=== PATIENT | female | born 1975 | race Caucasian/White ===

== ENCOUNTER → 2016-06-08 | Day surgery (SDC) | payer BC ==
[2016-06-06 14:33] VITALS: Ht 161.9 cm; Wt 90.9 kg
[~2016-06-08] VITALS: Ht 161.9 cm; Wt 90.9 kg
[~2016-06-08] MED LIST: CHLORAPHIL PO; CYAN10005 PO; ECHI80CA PO; IBUP600T44 PO; LIDOCAINE HCL 2% 2 ML VIAL (20MG/ML) ONE; MIDAZOLAM HCL 1 MG/ML 2ML VIAL ONE; MISCCAP80 PO; MULT-506 PO; PROPOFOL IV EMULSION 10 MG/ML 20 ML VIAL IV ONE; SODIUM CHLORIDE 0.9% 500ML 500 ML IV ONE; VNTHFA/IN INH; [UNRECOGNIZED DRUG - OTHER] PO
[2016-06-08 12:33] VITALS: TEMP 36.6
--- NOTE | 2016-06-08 13:08 | Endo History and Physical ---
History & Physical Date of Service: Jun 08, 2016. Chief Complaint: Reflux Referring Physician: Dr. Cardozo History of Present Illness sore throat/ear pain Past Surgical History Hx Cardiac Surgery: No Hx Internal Defibrillator: No Hx Pacemaker: No Hx Abdominal Surgery: No Hx of Implantable Prosthesis: No Hx Post-Op Nausea and Vomiting: No Hx Cancer Surgery: No Hx Thoracic Surgery: No Hx Orthopedic: No Hx Urinary Tract Surgery: No Family History None Social History Smoking Status: Never Smoker Hx Substance Use: No Hx Alcohol Use: Yes (OCCASIONAL) Allergies Coded Allergies: NO KNOWN DRUG ALLERGIES (Verified Allergy, Unknown, ., 06/06/16) Uncoded Allergies: CHEAP JEWELRY (Allergy, Unknown, ITCHING AND SWELLING, 06/06/16) Current Medications Reported Home Medications Medications Dose Route/Sig Max Daily Dose Days Date Category Ventolin Hfa (Albuterol) 200 Puffs/28268 Mcg Aers 2-4 Puffs INH Q6H PRN 06/06/16 Reported Echinacea 80 Mg Cap 1 Cap PO DAILY PRN 06/06/16 Reported Vitamin B-12 (Cyanocobalamin) 1,000 Mcg Tab 1,000 Mcg PO HS 06/06/16 Reported [Elder Rae] 1 Cap PO QAM 06/06/16 Reported [Chloraphil] 1 Cap PO QAM 06/06/16 Reported Probiotic (Probiotic Product) 1 Cap Cap 1 Tab PO QAM 06/06/16 Reported Multivitamin (Multivitamins) Tab 1 Tab PO HS 06/06/16 Reported Motrin (Ibuprofen) 600 Mg Tab 600 Mg PO Q4-6H PRN 04/23/09 Reported Vital Signs Weight (Kilograms): 90.91 Height (Feet): 5 Height (Inches): 3.75 Date Time Temp Pulse Resp B/P Pulse Ox O2 Delivery O2 Flow Rate FiO2 06/08/16 12:33 36.6 86 18 125/64 98 Room Air Physical Exam AAO x3 Nl s1s2 Lungs CTA Abd soft NT/ND + BS - CCE Assessment and Plan EGD with FENG off meds
--- NOTE | 2016-06-08 13:23 | Discharge Instructions ---
Endoscopy Patient Instructions Date / Procedure(s) Performed Jun 08, 2016. EGD Allergy Information Coded Allergies: NO KNOWN DRUG ALLERGIES (Verified Allergy, Unknown, ., 06/06/16) Uncoded Allergies: CHEAP JEWELRY (Allergy, Unknown, ITCHING AND SWELLING, 06/06/16) Discharge Date / Findings Jun 08, 2016. EGD with Perrin placment- small HH Medication Instructions Restart Stopped Medication(s): Reported Home Medications Medications Dose Route/Sig Max Daily Dose Days Date Category Ventolin Hfa (Albuterol) 200 Puffs/75998 Mcg Aers 2-4 Puffs INH Q6H PRN 06/06/16 Reported Echinacea 80 Mg Cap 1 Cap PO DAILY PRN 06/06/16 Reported Vitamin B-12 (Cyanocobalamin) 1,000 Mcg Tab 1,000 Mcg PO HS 06/06/16 Reported [Elder Rae] 1 Cap PO QAM 06/06/16 Reported [Chloraphil] 1 Cap PO QAM 06/06/16 Reported Probiotic (Probiotic Product) 1 Cap Cap 1 Tab PO QAM 06/06/16 Reported Multivitamin (Multivitamins) Tab 1 Tab PO HS 06/06/16 Reported Motrin (Ibuprofen) 600 Mg Tab 600 Mg PO Q4-6H PRN 04/23/09 Reported Reported Home Medications Medications Dose Route/Sig Max Daily Dose Days Date Category Ventolin Hfa (Albuterol) 200 Puffs/44462 Mcg Aers 2-4 Puffs INH Q6H PRN 06/06/16 Reported Echinacea 80 Mg Cap 1 Cap PO DAILY PRN 06/06/16 Reported Vitamin B-12 (Cyanocobalamin) 1,000 Mcg Tab 1,000 Mcg PO HS 06/06/16 Reported [Elder Rae] 1 Cap PO QAM 06/06/16 Reported [Chloraphil] 1 Cap PO QAM 06/06/16 Reported Probiotic (Probiotic Product) 1 Cap Cap 1 Tab PO QAM 06/06/16 Reported Multivitamin (Multivitamins) Tab 1 Tab PO HS 06/06/16 Reported Motrin (Ibuprofen) 600 Mg Tab 600 Mg PO Q4-6H PRN 04/23/09 Reported Provider Instructions Activity Restrictions - No exercising or heavy lifting for 24 hours. - Do not drink alcohol the day of the procedure. - Do not drive a car or operate machinery until the day after the procedure. - Do not make any important decisions or sign important papers in 24 hours after the procedure. Following Day: - Return to full activity which may include returning to work/school. Diet Start your diet with liquids and light foods (jello, soup, juice, toast). Then eat your usual diet if not nauseated. Treatment For Common After Affects For mild abdominal pain, bloating, or excessive gas: - Rest - Eat lightly - Lie on right side Follow-Up Information Follow-up with Dr. Cardozo as scheduled Anesthesia Information What You Should Know You have had a procedure that required some medicine to reduce anxiety and discomfort. This treatment is called moderate sedation. After receiving the treatment, you may be sleepy, but you will be able to breathe on your own. The effects of the treatment may last for several hours. Follow these instructions along with Activity/Diet recommendations noted above: * Do NOT do anything where dizziness or clumsiness would be dangerous. * Rest quietly at home today, then you can be up and about tomorrow. * Have a responsible person stay with you the rest of today. * You may have had an I.V. today. If so, you may take the dressing off later today. Recommendations Call your doctor if: * Trouble breathing * Continuous vomiting for more than 24 hours * Temperature above 101 degrees * Severe abdominal pain or bloating * Pain not relieved by pain medicine ordered * There is increased drainage or redness from any incision * A large amount of rectal bleeding greater than 2-3 tablespoons. (If you had a polyp/s removed or have hemorrhoids, a small amount of blood - from the rectum is to be expected.) * You have any unanswered questions or concerns. IN THE EVENT OF A SERIOUS EMERGENCY, GO TO THE NEAREST EMERGENCY ROOM Your discharge instructions were prepared by provider Nikolay Renner. Patient Instructions Signature Page Keisha Medrano Patient (or Guardian) Signature/Date: I have read and understand the instructions given to me by my caregivers. Caregiver/RN/Doctor Signature/Date: The above-named patient and/or guardian has received patient instructions on this date. + Original Patient Signature Page (only) stays with chart. Please make copy for patient.
--- NOTE | 2016-06-08 13:38 | GI REPORT ---
Procedure Date: 06/08/2016 12:50 PM Procedure: Upper GI endoscopy Indications: Suspected gastro-esophageal reflux disease, Chronic pharyngitis, Laryngitis, Sore throat Medicines: Propofol per Anesthesia Complications: No immediate complications. Estimated blood loss: None. Estimated Blood Loss: Estimated blood loss: none. Procedure: Pre-Anesthesia Assessment: - Prior to the procedure, a History and Physical was performed, and patient medications and allergies were reviewed. The patient's tolerance of previous anesthesia was also reviewed. The risks and benefits of the procedure and the sedation options and risks were discussed with the patient. All questions were answered, and informed consent was obtained. Prior Anticoagulants: The patient has taken no previous anticoagulant or antiplatelet agents. ASA Grade Assessment: II - A patient with mild systemic disease. After reviewing the risks and benefits, the patient was deemed in satisfactory condition to undergo the procedure. After obtaining informed consent, the endoscope was passed under direct vision. Throughout the procedure, the patient's blood pressure, pulse, and oxygen saturations were monitored continuously. The Scope was introduced through the mouth, and advanced to the second part of duodenum. The upper GI endoscopy was accomplished without difficulty. The patient tolerated the procedure well. Findings: The examined esophagus was normal. A small hiatus hernia was found. The proximal extent of the gastric folds (end of tubular esophagus) was 35 cm from the incisors. The hiatal narrowing was 36 cm from the incisors. The Z-line was 35 cm from the incisors. The middle third of the esophagus was normal. The FENG capsule with delivery system was introduced through the mouth and advanced into the esophagus, such that the FENG pH capsule was positioned 29 cm from the incisors, which was 6 cm proximal to the EG junction. Suction was applied to the well of the FENG pH capsule to suck in the adjacent mucosa of the esophagus using the external vacuum pump set at a minimum vacuum pressure of 550 mmHg for 30 seconds. The FENG pH capsule was then deployed by depressing the plunger on top of the handle to advance the locking pin into the mucosa, thereby attaching the capsule to the esophagus. The plunger was then rotated a quarter turn clockwise to release the capsule from the delivery system. The delivery system was then withdrawn. Endoscopy was utilized for probe placement and diagnostic evaluation. The entire examined stomach was normal. The examined duodenum was normal. Retained gastric contents are not identified on this exam. The cardia and gastric fundus were normal on retroflexion. Impression: - Normal esophagus. - Small hiatus hernia. - Normal middle third of esophagus. - Normal stomach. - Normal examined duodenum. - The FENG pH capsule was positioned 29 cm from the naris, which was 6 cm proximal to the EG junction. - No specimens collected. Recommendation: - Discharge patient to home (ambulatory). - Resume previous diet. - Do not use any acid suppressing medications including PPI, H 2 blockers TUMS or liquid/tablet antacids for next 48 hours - Return to GI clinic as previously scheduled. 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 Note Initiated On: 06/08/2016 12:50 PM I attest to the content of the Intraoperative Record and orders documented therein, exceptions below
[2016-06-08 13:45] VITALS: BP 112/76; PULSE 71; O2SAT 97
--- NOTE | 2016-06-08 14:35 | Anesthesiology Progress Note ---
Anesthesia Post Op Note Date & Time Jun 08, 2016 at 14:36 Vital Signs Pain Intensity: 0 Vital Signs Past 12 Hours Date Time Temp Pulse Resp B/P Pulse Ox O2 Delivery O2 Flow Rate FiO2 06/08/16 13:45 71 18 112/76 97 Room Air 06/08/16 13:35 78 18 113/67 98 Room Air 06/08/16 13:25 82 18 98/56 94 Room Air 06/08/16 12:33 36.6 86 18 125/64 98 Room Air Notes Mental Status: alert / awake / arousable, participated in evaluation Pt Amnestic to Procedure: Yes Nausea / Vomiting: adequately controlled Pain: adequately controlled Airway Patency, RR, SpO2: stable & adequate BP & HR: stable & adequate Hydration State: stable & adequate Anesthetic Complications: no major complications apparent
--- NOTE | 2016-06-12 14:33 | OPERATIVE REPORT ---
DATE OF OPERATION: 06/12/2016 PROCEDURE PERFORMED: 48-hour ambulatory pH monitoring with Perrin. DESCRIPTION OF PROCEDURE: The patient had a Perrin clip placed by Dr. Renner and the clip was in place for the entire 48-hour time period, making it a valid study. During the 48-hour period, the patient had a total DeMeester score of 7, which is below the threshold for significant reflux. In the first 24 hours, her DeMeester score was 6.5 and the second 24 hours, it was 7.4 for an average of 7. This indicates no significant acid reflux over the 48-hour period. In addition, she had 3 symptoms that were monitored; heartburn, chest pain and regurgitation. There were 13 episodes that record of heartburn, 3 of chest pain and 2 of regurgitation. None of these episodes were related to acid reflux indicating there is no correlation with her symptoms and acid reflux disease. IMPRESSION: No significant acid reflux with no correlation to these symptoms that she is experiencing. I attest to the content of the Intraoperative Record and any orders documented therein. Any exceptio ns are noted below.
== END | disposition home or self-care (01) ==
LOC: C.GI 12:15
PROVIDERS: ATTEND Internal Medicine Gastroenterology
DX: K21.9 Gastro-esophageal reflux disease without esophagitis (principal); J31.2 Chronic pharyngitis; J04.0 Acute laryngitis; K44.9 Diaphragmatic hernia without obstruction or gangrene

== ENCOUNTER → 2016-11-03 | Outpatient (CLI) | payer BC ==
[~2016-11-03] MED LIST changes: -LIDOCAINE HCL 2% 2 ML VIAL (20MG/ML) ONE; -MIDAZOLAM HCL 1 MG/ML 2ML VIAL ONE; -PROPOFOL IV EMULSION 10 MG/ML 20 ML VIAL IV ONE; -SODIUM CHLORIDE 0.9% 500ML 500 ML IV ONE
[2016-11-03 13:06] LABS: PFT COL EPI 124 SECONDS (80-184)
== END | disposition home or self-care (01) ==
LOC: C.LABSPEC 10:58
PROVIDERS: ATTEND Family Medicine
DX: R23.8 Other skin changes (principal)